=== PATIENT | male | born 1960 | race Hispanic/Latino ===

== ENCOUNTER → 2018-05-08 | Outpatient (CLI) | payer BC ==
[~2018-05-08] MED LIST: AEC81 PO; AMLO10TA6 PO; CARV25TA PO; CLOP75TA14 PO; GLYB5TAB8 PO; LISI40TA4 PO; LOVA20TA3 PO; METF-444 PO
== END | disposition home or self-care (01) ==
LOC: SHCH 09:26
PROVIDERS: ATTEND Internal Medicine Cardiovascular Disease
DX: I51.7 Cardiomegaly (principal); I25.10 Atherosclerotic heart disease of native coronary artery without angina pectoris; Z72.89 Other problems related to lifestyle
CPT/HCPCS: 93306

== ENCOUNTER 2018-06-25 08:14 | Emergency (ER) | payer BC ==
[~2018-06-25 08:14] MED LIST changes: -AMLO10TA6 PO; +AMLO10TA7 PO
[2018-06-25] MEDS ORDERED: MECLIZINE HCL 25 MG TABLET ONE (08:54)
[2018-06-25] MEDS ORDERED: ONDANSETRON HCL 4 MG/2 ML VIAL ONE (08:54)
[2018-06-25] MEDS ORDERED: SODIUM CHLORIDE 0.9% 500ML 500 ML IV ONE (08:54)
[2018-06-25 08:57] LABS: BASOPHILS % (AUTO) 0.3 % (0.0-5.0); EOSINOPHILS % (AUTO) 0.9 % (0.0-8.0); HEMATOCRIT 42.8 % (42-54); LYMPHOCYTES % (AUTO) 15.5 % (21.0-51.0); MEAN CORPUSCULAR HEMOGLOBIN 28.6 pg (27.0-33.0); MEAN CORPUSCULAR HGB CONC 33.5 g/dL (32.0-36.0); MEAN CORPUSCULAR VOLUME 85.2 fL (79-99); NEUTROPHILS % (AUTO) 78.3 % (40.0-77.0); PLATELET COUNT (AUTO) 206 K/uL (130-400); RED BLOOD CELL COUNT(AUTO) 5.02 MIL/uL (4.50-6.20); RED CELL DISTRIBUTION WIDTH 13.5 % (11.0-15.5); WHITE BLOOD COUNT (AUTO) 7.6 K/uL (4.8-10.8)
[2018-06-25 09:02] LABS: CREATININE 1.1 mg/dL (0.5-1.5); POTASSIUM 3.8 mmol/L (3.5-5.1)
== END 2018-06-25 10:29 | disposition home or self-care (01) ==
LOC: EDH 08:14
DX: H81.399 Other peripheral vertigo, unspecified ear (principal); R11.0 Nausea; E11.9 Type 2 diabetes mellitus without complications; I25.10 Atherosclerotic heart disease of native coronary artery without angina pectoris; I10 Essential (primary) hypertension; Z95.5 Presence of coronary angioplasty implant and graft; Z79.899 Other long term (current) drug therapy
CPT/HCPCS: 36415; 70450; 80048; 85025; 93005; 96361; 96374; 99285; J2405; J7040

== ENCOUNTER 2018-07-08 08:45 | Observation (INO) | payer BC ==
[2018-07-07 13:16] VITALS: BP_SYST 136; BP_SYST 90; BP_DIAS 56; BP_DIAS 74
[2018-07-07 13:26] LABS: BASOPHILS % (AUTO) 0.6 % (0.0-5.0); EOSINOPHILS % (AUTO) 3.7 % (0.0-8.0); HEMATOCRIT 41.2 % (42-54); LYMPHOCYTES % (AUTO) 26.6 % (21.0-51.0); MEAN CORPUSCULAR HEMOGLOBIN 28.9 pg (27.0-33.0); MEAN CORPUSCULAR HGB CONC 33.5 g/dL (32.0-36.0); MEAN CORPUSCULAR VOLUME 86.1 fL (79-99); MONOCYTES % (AUTO) 9.4 % (3.0-13.0); NEUTROPHILS % (AUTO) 59.7 % (40.0-77.0); PLATELET COUNT (AUTO) 229 K/uL (130-400); RED BLOOD CELL COUNT(AUTO) 4.79 MIL/uL (4.50-6.20); RED CELL DISTRIBUTION WIDTH 13.9 % (11.0-15.5); WHITE BLOOD COUNT (AUTO) 6.6 K/uL (4.8-10.8)
[2018-07-07 13:33] LABS: CREATININE 1.7 mg/dL (0.5-1.5); POTASSIUM 4.3 mmol/L (3.5-5.1)
[2018-07-07 13:40] LABS: PARTIAL THROMBOPLASTIN TIME 32.1 SEC (26.3-35.5); PROTHROMBIN TIME 10.5 SEC (9.6-11.6)
--- NOTE | 2018-07-07 15:49 | NUR ---
ABNORMAL LABS REPORTED ABNORMAL LABS TO [facility]. CREATINE 1.7. NO NEW ORDERS.
[~2018-07-08] VITALS: Ht 170.2 cm; Wt 96.8 kg
[2018-07-08] VITALS (10 sets, daily range): BP systolic 99–141; BP diastolic 60–88
[~2018-07-08 08:45] MED LIST changes: +ALLO300T2 PO; +ATOR20TA65 PO; +IBUP-2070 PO; -LOVA20TA3 PO; +SODIUM CHLORIDE 0.9% 1000ML 1,000 ML IV SCH
[2018-07-08] MEDS ORDERED: AMOX-429 PO (10:23)
[2018-07-08] MEDS ORDERED: MECL-111 PO (10:23)
--- NOTE | 2018-07-08 10:27 | NUR ---
BRANDY Crenshaw notified of patient taking antibiotics for an ear infection, pt stable no distress, afebrile. Okay to continue with procedure.
[2018-07-08] MEDS ORDERED: LIDOCAINE HCL 1% MDV 50ML VIAL ONE (13:17)
[2018-07-08] MEDS ORDERED: BUPIVACAINE/PF 0.25% 10ML VIAL IJ ONE (13:17)
[2018-07-08] MEDS ORDERED: CEFAZOLIN SODIUM 1 GM VIAL ONE (13:17)
[2018-07-08] MEDS ORDERED: MIDAZOLAM HCL 1 MG/ML 2ML VIAL ONE ×2 (14:29→15:09)
[2018-07-08] MEDS ORDERED: MEPERIDINE-PF 25 MG/ML SYG ONE ×2 (14:29→15:09)
[2018-07-08] MEDS ORDERED: OCTYL 2-CYANOACRYLATE 1 EACH TP ONE (15:27)
[2018-07-08] MEDS ORDERED: ALPRAZOLAM 0.5 MG TABLET PO SCH (16:00)
[2018-07-08] MEDS ORDERED: MECLIZINE HCL 25 MG TABLET PO PRN (16:00)
[2018-07-08] MEDS ORDERED: IBUPROFEN 600 MG TABLET PO PRN (16:00)
[2018-07-08] MEDS ORDERED: ONDANSETRON HCL 4 MG/2 ML VIAL IV PRN (16:00)
[2018-07-08] MEDS ORDERED: ACETAMINOPHEN-CODEINE 300/30MG TAB PO PRN ×2 (16:00)
[2018-07-08] MEDS ORDERED: DEXTROSE 50%-WATER 50 ML DISP.SYRIN IV PRN (16:00)
--- NOTE | 2018-07-08 16:17 | NUR ---
ASSESSMENT RECEIVED PT FROM Muna SHEFFIELD RN. PT AAOX3. RIGHT ARM IN SLING. INSTRUCTED ON IMPORTANCE OF NOT LIFTING RIGHT ARM OVER HEAD. VERBALIZED UNDERSTANDING. PRESSURE DRSG IN PLACE TO RIGHT UPPER CHEST. SOFT TO TOUCH. NO BLEEDING, OOZING NOTED.
--- NOTE | 2018-07-08 16:30 | NUR ---
SITE CHECK SITE CHECK TO RIGHT UPPER CHEST SOFT TO TOUCH. NO BLEEDING, OOZING NOTED TO SITE.
--- NOTE | 2018-07-08 16:45 | NUR ---
SITE CHECK SITE CHECK TO RIGHT UPPER CHEST SOFT TO TOUCH. NO BLEEDING, OOZING NOTED TO SITE.
--- NOTE | 2018-07-08 16:50 | NUR ---
REPORT/RECEIVE REPORT RECEIVED FROM JOE ZHOU RN. PT RECEIVED SEMI SITTING ON BED. PT AWAKE ALERT ORIENTEDX3. STABLE. NO COMPLAINTS MADE. PRESSURE DRESSING TO RIGHT CHEST INTACT, OPSITE DRESSING UNDERNEATH DRY AND INTACT, NO OOZING NOTED, SITE SOFT, NO HEMATOMA NOTED. RIGHT ARM IN SLING. ICE PACK TO SITE. PT INSTRUCTED DO NOT ELEVATE RIGHT ARM ABOVE SHOULDER LEVEL FOR 6 WEEKS. PT ALSO INSTRUCTED TO REMAIN ON BEDREST UNTIL TOMORROW MORNING. VERBALIZED UNDERSTANDING.
--- NOTE | 2018-07-08 16:50 | NUR ---
REPORT REPORT GIVEN TO Joseph LÓPEZ RN
--- NOTE | 2018-07-08 17:15 | NUR ---
HOSPITALIST DR. DELONG NOTIFIED OF ADMISSION AND ROOM #202.
--- NOTE | 2018-07-08 17:20 | NUR ---
REPORT REPORT GIVEN TO ALISHA ESTRELLA. PT EATING AT THIS TIME, ADVISED ALISHA ESTRELLA WE WILL TRANSFER PT WHEN DONE.
--- NOTE | 2018-07-08 17:25 | NUR ---
ASSESS OPSITE DRESSING TO RIGHT UPPER CHEST REMAINS DRY AND INTACT, SITE SOFT, NO OOZING NO HEMATOMA NOTED, PRESSURE DRESSING REMAINS INTACT.
--- NOTE | 2018-07-08 17:50 | NUR ---
TRANSFER PT TOLERATED DIET WELL. PT STABLE. NOT IN ANY APPARENT DISTRESS. NO COMPLAINTS MADE. SITE REMAINS SOFT, DRESSING DRY AND INTACT, NO OOZING NO HEMATOMA NOTED. PT TRANSFERRED TO ROOM 202, MAINTAINED ON BEDREST. PT RECEIVED BY SAMEER BRITO.
--- NOTE | 2018-07-08 18:00 | NUR ---
ADMISSION Received to room 202 from day patient. AAO, appropriate. Denies pain. Right chest procedural drsg dry, intact with ice pack in place. Pt reports minimal discomfort to site. Arm sling in use. SL x2 in place. Abd soft - denies nausea. Due to void - urinal within reach. Placed on telemetry monitoring. Oriented to room. Discussed plan of care. Questions addressed. Positioned for comfort. Needed items placed within reach. Family members at bedside. Assessment as recorded.
--- NOTE | 2018-07-08 20:00 | NUR ---
Patient alert and oriented. Denies pain. R arm in sling. No hematoma. Ice placed on R upper chest. Bilateral radial pulses palpable. Denies pain or sob. Educated on R arm precautions. Visitors at bedside
[2018-07-08] MEDS: AMOXICILLIN/POTASSIUM CLAV 875-125 TABLET PO SCH (20:47)
[2018-07-08] MEDS: CARVEDILOL 25 MG TABLET PO SCH (20:48)
[2018-07-08] MEDS: INSULIN HUMULIN R 100 UNIT/ML 3ML SQ SCH (21:00)
[2018-07-09] MEDS: CEFAZOLIN SODIUM 1 GM VIAL IVP SCH ×2 (00:41→08:46)
[2018-07-09 03:24] VITALS: BP 117/76
[2018-07-09 05:22] LABS: BASOPHILS % (AUTO) 0.4 % (0.0-5.0); HEMATOCRIT 38.8 % (42-54); LYMPHOCYTES % (AUTO) 23.3 % (21.0-51.0); MEAN CORPUSCULAR HEMOGLOBIN 28.6 pg (27.0-33.0); MEAN CORPUSCULAR VOLUME 86.5 fL (79-99); MONOCYTES % (AUTO) 9.4 % (3.0-13.0); NEUTROPHILS % (AUTO) 63.9 % (40.0-77.0); PLATELET COUNT (AUTO) 217 K/uL (130-400); RED BLOOD CELL COUNT(AUTO) 4.48 MIL/uL (4.50-6.20); RED CELL DISTRIBUTION WIDTH 13.6 % (11.0-15.5); WHITE BLOOD COUNT (AUTO) 5.9 K/uL (4.8-10.8)
[2018-07-09 05:31] LABS: POTASSIUM 3.9 mmol/L (3.5-5.1)
--- NOTE | 2018-07-09 06:25 | NUR ---
Taken down for Xray
[2018-07-09] MEDS: INSULIN HUMULIN R 100 UNIT/ML 3ML SQ SCH ×2 (06:47→11:30)
[2018-07-09 07:31] VITALS: BP 140/88
[2018-07-09] MEDS: AMOXICILLIN/POTASSIUM CLAV 875-125 TABLET PO SCH (08:45)
[2018-07-09] MEDS: CARVEDILOL 25 MG TABLET PO SCH (08:46)
--- NOTE | 2018-07-09 08:50 | NUR ---
DR. Violet MONTIEL IN ROOM ASSESSING RIGHT UPPER CHEST AND REMOVING PRESSURE DRSG. PT. INSTRUCTED ON RIGHT ARM RESTRICTIONS/PRECAUTIONS BY DR. Violet MONTIEL; PT. VERBALIZED UNDERSTANDING.
[2018-07-09] MEDS ORDERED: ALLOPURINOL 300 MG TABLET PO SCH (09:00)
[2018-07-09] MEDS ORDERED: LISINOPRIL 40 MG TABLET PO SCH (09:00)
[2018-07-09] MEDS ORDERED: ATORVASTATIN CALCIUM 20 MG TABLET PO SCH (09:00)
[2018-07-09] MEDS ORDERED: ASPIRIN 81 MG EC TAB PO SCH (09:00)
[2018-07-09] MEDS ORDERED: AMLODIPINE BESYLATE 5 MG TAB PO SCH (09:00)
[2018-07-09] MEDS ORDERED: METFORMIN HCL 500 MG TAB.SR.24H PO SCH (09:00)
[2018-07-09] MEDS ORDERED: CLOPIDOGREL BISULFATE 75 MG TAB PO SCH (09:00)
[2018-07-09] MEDS ORDERED: GLYBURIDE 5 MG TABLET PO SCH (09:00)
--- NOTE | 2018-07-09 10:50 | NUR ---
DR. DELONG IN ROOM SPEAKING WITH PT. RE:PLAN OF CARE.
[2018-07-09 11:32] VITALS: BP 136/79
--- NOTE | 2018-07-09 14:45 | NUR ---
HL REMOVED, CATHETER INTACT. DISCHARGE INSTRUCTIONS GIVEN INCLUDING RIGHT ARM RESTRICTIONS, VERBALIZED UNDERSTANDING.
== END 2018-07-09 15:19 | disposition home or self-care (01) ==
LOC: DAH 08:45 → DAHIP 08:46 → DAH 08:46 → 2AH 17:55
PROVIDERS: ADMIT Internal Medicine; ATTEND Internal Medicine
DX: I25.5 Ischemic cardiomyopathy (principal); E11.9 Type 2 diabetes mellitus without complications; E78.2 Mixed hyperlipidemia; G47.33 Obstructive sleep apnea (adult) (pediatric); I11.0 Hypertensive heart disease with heart failure; I50.42 Chronic combined systolic (congestive) and diastolic (congestive) heart failure; I25.10 Atherosclerotic heart disease of native coronary artery without angina pectoris; Z95.5 Presence of coronary angioplasty implant and graft; Z95.810 Presence of automatic (implantable) cardiac defibrillator; Z82.0 Family history of epilepsy and other diseases of the nervous system; Z82.3 Family history of stroke; Z82.49 Family history of ischemic heart disease and other diseases of the circulatory system; Z82.5 Family history of asthma and other chronic lower respiratory diseases; Z83.3 Family history of diabetes mellitus; E66.9 Obesity, unspecified
CPT/HCPCS: 33249; 36415 ×2; 71046; 80048 ×2; 82948 ×5; 85025 ×2; 85610; 85730; 93005; 96374; 96376; A4606; C1722; C1894; C1895; G0378 ×31; J0690 ×3; J2175 ×2; J2250 ×2; J3490 ×2; J7030; 99156; 99157

== ENCOUNTER → 2019-10-21 | Outpatient (CLI) | payer BC ==
[~2019-10-21] MED LIST changes: +AMOX-429 PO; +MECL-160 PO; -SODIUM CHLORIDE 0.9% 1000ML 1,000 ML IV SCH
== END | disposition home or self-care (01) ==
LOC: SHCH 10:00
PROVIDERS: ATTEND Internal Medicine Cardiovascular Disease
DX: R01.1 Cardiac murmur, unspecified (principal); I10 Essential (primary) hypertension; R09.89 Other specified symptoms and signs involving the circulatory and respiratory systems
CPT/HCPCS: 93306; 93356; 93880

== ENCOUNTER → 2021-11-10 | Outpatient (CLI) | payer BC ==
[~2021-11-10] MED LIST changes: +AMLO-258 PO; -AMLO10TA7 PO; -LISI40TA4 PO; +LISI40TA9 PO
== END | disposition home or self-care (01) ==
LOC: SHCH 09:21
PROVIDERS: ATTEND Internal Medicine Cardiovascular Disease
DX: I49.3 Ventricular premature depolarization (principal); I48.0 Paroxysmal atrial fibrillation; I47.2 Ventricular tachycardia; I51.7 Cardiomegaly
CPT/HCPCS: 93306

== ENCOUNTER → 2022-04-02 | Outpatient (CLI) | payer BC ==
[~2022-04-02] MED LIST changes: +REGADENOSON 0.4 MG/5 ML PF SYG IVP SCH
== END | disposition home or self-care (01) ==
LOC: SHCH 07:32
PROVIDERS: ATTEND Internal Medicine Cardiovascular Disease
DX: I49.3 Ventricular premature depolarization (principal); I51.7 Cardiomegaly; I25.5 Ischemic cardiomyopathy; R07.9 Chest pain, unspecified
CPT/HCPCS: 78452; 96374; 93017; J2785; A9500 ×2

== ENCOUNTER 2022-05-25 08:43 | Day surgery (SDC) | payer BC ==
[2022-05-23 09:00] LABS: BASOPHILS % (AUTO) 0.6 % (0.0-5.0); EOSINOPHILS % (AUTO) 7.9 % (0.0-8.0); HEMATOCRIT 42.3 % (42-54); LYMPHOCYTES % (AUTO) 28.8 % (21.0-51.0); MEAN CORPUSCULAR HEMOGLOBIN 28.9 pg (27.0-33.0); MEAN CORPUSCULAR HGB CONC 33.1 g/dL (32.0-36.0); MEAN CORPUSCULAR VOLUME 87.4 fL (79-99); MONOCYTES % (AUTO) 10.4 % (3.0-13.0); PLATELET COUNT (AUTO) 190 K/uL (130-400); RED BLOOD CELL COUNT(AUTO) 4.84 MIL/uL (4.50-6.20); RED CELL DISTRIBUTION WIDTH 13.4 % (11.0-15.5); WHITE BLOOD COUNT (AUTO) 6.9 K/uL (4.8-10.8)
[2022-05-23 09:09] LABS: CREATININE 1.4 mg/dL (0.5-1.5); POTASSIUM 4.4 mmol/L (3.5-5.1)
[2022-05-23 09:11] LABS: APPEARANCE,URINE CLEAR (CLEAR); BILIRUBIN,URINE NEGATIVE (NEGATIVE); COLOR,URINE LIGHT-YELLOW (YELLOW); GLUCOSE, URINE (UA) NEGATIVE (NEGATIVE); KETONES,URINE NEGATIVE (NEGATIVE); LEUKOCYTE ESTERASE ,URINE NEGATIVE Leu/uL (NEGATIVE); NITRATE,URINE NEGATIVE (NEGATIVE); OCCULT BLOOD,URINE NEGATIVE (NEGATIVE); PH,URINE 5.5 (5.0-8.0); PROTEIN,URINE 10 mg/dL (NEGATIVE); UROBILINOGEN,URINE 0.2 mg/dL (0.2-1.0)
[2022-05-23 09:12] LABS: INR 1.08 (0.85-1.15); PROTHROMBIN TIME 11.7 SEC (9.6-11.6)
[2022-05-23 09:13] LABS: PARTIAL THROMBOPLASTIN TIME 35.6 SEC (26.3-35.5)
[2022-05-23 09:13] LABS: MUCUS,URINE RARE LPF (None Seen); SQUAMOUS EPITHELIAL CELL,UR RARE /HPF (0-2); WBC,URINE 0-1 /HPF (0-1)
[2022-05-23 09:38] LABS: B-TYPE NATRIURETIC PEPTIDE 19 pg/mL (0-100)
[2022-05-24 09:55] VITALS: BP 115/60
[2022-05-25] VITALS (14 sets, daily range): BP systolic 79–131; BP diastolic 50–74
[~2022-05-25] VITALS: Ht 170.2 cm; Wt 95.9 kg
[~2022-05-25 08:43] MED LIST changes: +0.9% NACL 500ML IV.SOLN 500 ML IV SCH; -AEC81 PO; -AMOX-429 PO; +APIX5TAB PO; +CLOP-31 PO; -CLOP75TA14 PO; +DRON400T7 PO; -IBUP-2070 PO; -LISI40TA9 PO; -MECL-160 PO; -REGADENOSON 0.4 MG/5 ML PF SYG IVP SCH; +SACU1TAB7 PO
[2022-05-25] MEDS ORDERED: 0.9%NACL 1000ML 1,000 ML IV ONE (09:50)
[2022-05-25] MEDS ORDERED: HEPARIN 10,000 UNIT/10ML (1,000 UNIT/ML) VIAL ONE (12:01)
[2022-05-25] MEDS ORDERED: SODIUM BICARB 50MEQ 50ML VIAL 50 ML ONE (12:01)
[2022-05-25] MEDS ORDERED: MIDAZOLAM HCL 1 MG/ML 2ML VIAL ONE ×2 (12:02→12:18)
[2022-05-25] MEDS ORDERED: LIDOCAINE HCL 400MG/20ML VIAL ONE (12:02)
[2022-05-25] MEDS ORDERED: IOHEXOL 350 MG/ML 100ML INFUS..BTL IV ONE (12:02)
[2022-05-25] MEDS ORDERED: IOHEXOL-350 50ML VIAL IV ONE (12:02)
[2022-05-25] MEDS ORDERED: NITROGLYCERIN 50MG VIAL ONE (12:02)
[2022-05-25] MEDS ORDERED: MEPERIDINE-PF 25 MG/ML SYG ONE ×2 (12:02→12:18)
[2022-05-25] MEDS ORDERED: NICARDIPINE 25MG INJ IV ONE (12:03)
[2022-05-25] MEDS ORDERED: GLUCAGON 1MG KIT 1 MG ML IM PRN (13:30)
[2022-05-25] MEDS ORDERED: 0.9%NACL 1000ML 1,000 ML IV SCH (13:30)
[2022-05-25] MEDS ORDERED: DEXTROSE 50%-WATER 50 ML DISP.SYRIN IV PRN (13:30)
[2022-05-25] MEDS ORDERED: INSULIN HUMULIN R 100 UNIT/ML 3ML SQ SCH (16:30)
== END 2022-05-25 18:00 | disposition home or self-care (01) ==
LOC: DAH 08:43
PROVIDERS: ATTEND Internal Medicine Cardiovascular Disease
DX: I25.119 Atherosclerotic heart disease of native coronary artery with unspecified angina pectoris (principal); I11.0 Hypertensive heart disease with heart failure; I50.42 Chronic combined systolic (congestive) and diastolic (congestive) heart failure; I25.5 Ischemic cardiomyopathy; E78.5 Hyperlipidemia, unspecified; E11.9 Type 2 diabetes mellitus without complications; I25.2 Old myocardial infarction; E66.9 Obesity, unspecified; M10.9 Gout, unspecified; Z82.49 Family history of ischemic heart disease and other diseases of the circulatory system; Z79.84 Long term (current) use of oral hypoglycemic drugs; Z79.01 Long term (current) use of anticoagulants; Z79.899 Other long term (current) drug therapy; Z95.5 Presence of coronary angioplasty implant and graft; Z98.890 Other specified postprocedural states; Z68.33 Body mass index [BMI] 33.0-33.9, adult
CPT/HCPCS: 80048; 83880; 85025; 85610; 85730; 81001; 36415; 71045; 93005; 93458; 82948 ×2; C1894 ×3; C1760; J3490 ×4; J7030; J1644 ×2; J2250 ×2; J2175 ×2; Q9967; A4215; A4222; A4221; A4663; A4216; A4606; Q9965; A4223 ×3; 96360; 96361; 99156; 99157

== ENCOUNTER → 2022-09-25 | Outpatient (CLI) | payer BC ==
[~2022-09-25] MED LIST changes: -0.9% NACL 500ML IV.SOLN 500 ML IV SCH; +FLUT16H NASAL
== END | disposition home or self-care (01) ==
LOC: SHCH 14:10
PROVIDERS: ATTEND Internal Medicine Cardiovascular Disease
DX: I11.9 Hypertensive heart disease without heart failure (principal); I25.5 Ischemic cardiomyopathy; R06.00 Dyspnea, unspecified; E78.5 Hyperlipidemia, unspecified; E11.9 Type 2 diabetes mellitus without complications
CPT/HCPCS: 93306

== ENCOUNTER → 2023-08-06 | Outpatient (CLI) | payer BC ==
[~2023-08-06] MED LIST changes: +AMIO200T44 PO; -AMLO-258 PO; -CARV25TA PO; -DRON400T7 PO; -FLUT16H NASAL; +GLIP5TAB15 PO; -GLYB5TAB8 PO; -METF-444 PO; +METF-446 PO; +METO25 PO; +RANO500T2 PO; +SACU1TAB PO; -SACU1TAB7 PO
[2023-08-06 12:05] LABS: BASOPHILS # (AUTO) 0.04 K/uL (0.00-0.20); BASOPHILS % (AUTO) 0.6 % (0.0-5.0); EOSINOPHILS # (AUTO) 0.45 K/uL (0.00-0.70); EOSINOPHILS % (AUTO) 7.1 % (0.0-8.0); IMMATURE GRANULOCYTE ABSOLUTE 0.02 K/uL (0-1); LYMPHOCYTES # (AUTO) 1.9 K/uL (1.0-4.8); LYMPHOCYTES % (AUTO) 30.1 % (21.0-51.0); MEAN CORPUSCULAR HEMOGLOBIN 29.7 pg (27.0-33.0); MEAN CORPUSCULAR HGB CONC 33.7 g/dL (32.0-36.0); MEAN CORPUSCULAR VOLUME 88.1 fL (79-99); MONOCYTES # (AUTO) 0.6 K/uL (0.1-1.0); MONOCYTES % (AUTO) 8.7 % (3.0-13.0); NEUTROPHILS # (AUTO) 3.4 K/uL (1.8-7.7); NEUTROPHILS % (AUTO) 53.2 % (40.0-77.0); PLATELET COUNT (AUTO) 222 K/uL (130-400); RED BLOOD CELL COUNT(AUTO) 4.88 MIL/uL (4.50-6.20); RED CELL DISTRIBUTION WIDTH 13.6 % (11.0-15.5); WHITE BLOOD COUNT (AUTO) 6.3 K/uL (4.8-10.8)
[2023-08-06 12:40] LABS: ALBUMIN 3.6 g/dL (3.5-5.0); BILIRUBIN,TOTAL 0.5 mg/dL (0.2-1.0); CREATININE 1.1 mg/dL (0.5-1.5); MAGNESIUM 1.5 mg/dL (1.80-2.40); POTASSIUM 4.1 mmol/L (3.5-5.1); TOTAL PROTEIN, SERUM 7.6 g/dL (6.0-8.3)
== END | disposition home or self-care (01) ==
LOC: LAB 09:09
PROVIDERS: ATTEND Internal Medicine Cardiovascular Disease
DX: I10 Essential (primary) hypertension (principal); E78.5 Hyperlipidemia, unspecified
CPT/HCPCS: 36415; 80053; 83735; 83880; 85025

== ENCOUNTER → 2023-08-16 | Outpatient (CLI) | payer BC | END | disposition home or self-care (01) | LOC: RAH 12:51 | PROVIDERS: ATTEND Internal Medicine Cardiovascular Disease | DX: R51.9 Headache, unspecified (principal) | CPT/HCPCS: 70450 ==

== ENCOUNTER 2023-12-05 21:41 | Emergency (ER) | payer BC ==
[~2023-12-05] VITALS: Ht 170.2 cm; Wt 94.8 kg
[2023-12-05] MEDS: SOLU-MEDROL 125MG VIAL IVP ONE (22:12)
[2023-12-05] MEDS: FAMOTIDINE 20MG VIAL IV ONE (22:12)
[2023-12-05] MEDS: 0.9%NACL 1000ML 1,000 ML IV ONE (22:12)
[2023-12-05] MEDS ORDERED: PRED10TA23 PO (22:14)
[2023-12-05 22:30] VITALS: BP 114/64; PULSE 61; RESP 17; O2SAT 97
== END 2023-12-05 22:37 | disposition home or self-care (01) ==
LOC: EDH 21:41
DX: T63.441A Toxic effect of venom of bees, accidental (unintentional), initial encounter (principal); I10 Essential (primary) hypertension; E11.9 Type 2 diabetes mellitus without complications; E78.00 Pure hypercholesterolemia, unspecified; Z79.84 Long term (current) use of oral hypoglycemic drugs; Z98.890 Other specified postprocedural states; Y92.89 Other specified places as the place of occurrence of the external cause
CPT/HCPCS: 99284; 96374; 96375; J3490; J7030; J2919

== ENCOUNTER 2024-06-11 03:28 | Emergency (ER) | payer BC ==
[~2024-06-11] VITALS: Ht 170.2 cm; Wt 91.6 kg
[~2024-06-11 03:28] MED LIST changes: +PRED10TA23 PO
[2024-06-11 03:29] VITALS: TEMP 97.7
[2024-06-11 03:56] LABS: BASOPHILS # (AUTO) 0.04 K/uL (0.00-0.20); BASOPHILS % (AUTO) 0.6 % (0.0-5.0); EOSINOPHILS # (AUTO) 0.24 K/uL (0.00-0.70); EOSINOPHILS % (AUTO) 3.6 % (0.0-8.0); HEMATOCRIT 43.9 % (42-54); IMMATURE GRANULOCYTE ABSOLUTE 0.06 K/uL (0-1); LYMPHOCYTES # (AUTO) 2.2 K/uL (1.0-4.8); MEAN CORPUSCULAR HEMOGLOBIN 29.5 pg (27.0-33.0); MEAN CORPUSCULAR HGB CONC 34.4 g/dL (32.0-36.0); MEAN CORPUSCULAR VOLUME 85.9 fL (79-99); MONOCYTES # (AUTO) 0.7 K/uL (0.1-1.0); MONOCYTES % (AUTO) 10.8 % (3.0-13.0); NEUTROPHILS # (AUTO) 3.4 K/uL (1.8-7.7); NEUTROPHILS % (AUTO) 51.1 % (40.0-77.0); PLATELET COUNT (AUTO) 192 K/uL (130-400); RED BLOOD CELL COUNT(AUTO) 5.11 MIL/uL (4.50-6.20); RED CELL DISTRIBUTION WIDTH 13.7 % (11.0-15.5); WHITE BLOOD COUNT (AUTO) 6.7 K/uL (4.8-10.8)
[2024-06-11] MEDS: PROCHLORPERAZINE 10MG/2ML INJ IV ONE (03:56)
[2024-06-11] MEDS: dexaMETHasone SOD PHOSPHATE 4 MG/ML 1ML VIAL IV ONE (03:56)
[2024-06-11] MEDS: DiphenhydrAMINE HCL 50 MG/ML VIAL IV ONE (03:56)
[2024-06-11] MEDS: 0.9%NACL 1000ML 1,000 ML IV ONE (03:57)
[2024-06-11 04:04] LABS: CREATININE 1.1 mg/dL (0.5-1.3); POTASSIUM 3.8 mmol/L (3.5-5.1)
[2024-06-11 04:05] LABS: RAPID GROUP A STREP negative (NEGATIVE)
[2024-06-11 04:08] LABS: SARS-CoV-2, RNA, NAAT NEGATIVE SARS CoV-2 (NEGATIVE)
[2024-06-11 04:14] LABS: INFLUENZA TYPE A Negative For Type A (NEGATIVE)
[2024-06-11 04:16] LABS: INFLUENZA TYPE B Positive For Type B (NEGATIVE)
--- NOTE | 2024-06-11 04:16 | ERN ---
General Chief Complaint: Headache Stated Complaint: C/O HEADACHE ON AND OFF W/NAUSEA X 2 DAYS Time Seen by MD: 03:29 Source: patient History of Present Illness Initial Comments Patient is a 64-year-old male coming in to be evaluated for URI symptoms. Patient states that he has had nasal congestion postnasal drip and facial discomfort for about two weeks. Patient states that the headache has been on and off for about two days. Patient came in to be evaluated for these symptoms. Allergies: Coded Allergies: No Known Drug Allergies (Verified Allergy, Severe, 08/28/14) Home Meds Active Scripts Prednisone (Prednisone) 10 Mg Tab.ds.pk, 10 MG PO BID for 5 Days, #10 10 Prov:ERIKA ADAMS MD 12/05/23 Sacubitril/Valsartan (Entresto 24 mg-26 mg Tablet) 24 Mg-26 Mg Tablet, 1 EACH PO BID, #60 TAB Prov:DANIEL HERRERA IV, MD 07/25/23 Metoprolol Tartrate (Lopressor) 25 Mg Tab, 25 MG PO BID, #60 TAB Prov:DANIEL HERRERA IV, MD 07/25/23 Amiodarone HCl (Pacerone) 200 Mg Tablet, 400 MG PO DAILY, #60 TAB Prov:DANIEL HERRERA IV, MD 07/25/23 Reported Medications Ranolazine (RANEXA) 500 Mg Tab.er.12h, 500 MG PO BID, TAB 07/20/23 Metformin HCl (Metformin HCl) 1,000 Mg Tablet, 1000 MG PO BID, TAB 07/20/23 Glipizide (Glipizide) 5 Mg Tablet, 5 MG PO BID, TAB 07/20/23 Atorvastatin Calcium (Atorvastatin Calcium) 20 Mg Tablet, 20 MG PO HS, TAB 07/20/23 Apixaban (Eliquis) 5 Mg Tablet, 5 MG PO BID, TAB RESUME ELIQUIS ON 05/26/22 05/24/22 Allopurinol (Allopurinol) 300 Mg Tablet, 300 MG PO DAILY, TAB 07/07/18 Clopidogrel Bisulfate (Plavix) 75 Mg Tablet, 75 MG PO AM, TAB 08/28/14 Past Medical History Past Medical History: Diabetes-Type II, High Cholesterol, Hypertension Past Surgical History: None Surgical History Other: CARDIAC STENTS Social History Social History: Negative ROS Dictation CONSTITUTIONAL: No chills, no fever, no weakness, no diaphoresis, no malaise. HEAD/FACE: No signs of trauma. EENT: No eye pain, no blurred vision, no tearing, no double vision, no ear pain, no ear discharge, no nose pain, no nasal congestion, no throat pain, no throat swelling, no mouth pain. RESPIRATORY: No cough, no orthopnea, no SOB, no stridor, no wheezing. CARDIOVASCULAR: No chest pain, no edema, no palpitations, no syncope. GASTROINTESTINAL/ABDOMINAL: No abdominal pain, no constipation, no diarrhea, no nausea, no vomiting. GENITOURINARY: No abnormal discharge, no dysuria, no frequent urination, no hematuria. No complaints of pain in the genitals. MUSCULOSKELETAL: No back pain, no gout, no joint pain, no joint swelling, no muscle pain, no muscle stiffness, no neck pain. INTEGUMENTARY: No change in color, no change in hair/nails, no dryness, no lesion, no lumps, no rash. NEUROLOGICAL/PSYCH: No anxiety, not depressed, no emotional problem, no headache, no numbness, no pre-existing deficit, no history of seizures, no tremors, no weakness. HEMATOLOGIC/LYMPHATIC: Not anemic, no history of blood clots, no apparent bleeding, no bruising, glands not swollen. All Systems Negative, Except as Noted. Physical Exam Physical Exam Dictation VITAL SIGNS: Reviewed. GENERAL APPEARANCE: Alert, oriented x3, no acute distress, obese. HEAD AND FACE: Non-traumatic. EYES: PERRL, pink conjunctivas, eyelid no trauma, anterior chamber clear. EARS: Pinnas intact and no signs of trauma or erythema. Ear canals clear and no discharge. TMs no erythema. NOSE: No discharge, no bleeding. OROPHARYNX: Mouth normal, teeth no caries, tongue pink. Pharynx clear, no erythema. Tonsils no exudates, no abscesses noted. Mucous membrane moist. NECK: Supple, non-tender, no thyromegaly, no masses, no JVD, no bruits. BREAST: Deferred. CHEST: No tenderness, no crepitus, no paradoxical movement, no retractions. LUNGS: Clear, well-ventilated, symmetric, no rales, no wheezing, no rhonchi, no stridor, good breath sounds bilaterally. HEART: Regular rate, regular rhythm, no murmur, no gallops. VASCULAR: No peripheral edema. ABDOMEN: Soft, positive bowel sounds, nondistended, no guarding, nontender, no rebound, no masses no hepatomegaly, no splenomegaly, no Hoffmann's sign, no hernias. RECTAL: Deferred. GENITAL: Deferred. NEUROLOGICAL: Normal speech, gross motor function intact, gross sensory function intact. MUSCULOSKELETAL: Neck nontender, full range of motion, back nontender, full range of motion. EXTREMITIES: Nontender, full range of motion. SKIN: Color pink, dry, no turgor, no rash, no lacerations, no abrasions, no contusions. LYMPHATICS: Deferred. Results Laboratory and Microbiology Lab and Micro Result Laboratory Tests Test 06/11/24 03:44 White Blood Count 6.7 K/uL (4.8-10.8) Red Blood Count 5.11 MIL/uL (4.50-6.20) Hemoglobin 15.1 g/dL (14.0-18.0) Hematocrit 43.9 % (42-54) Mean Corpuscular Volume 85.9 fL (79-99) Mean Corpuscular Hemoglobin 29.5 pg (27.0-33.0) Mean Corpuscular Hemoglobin Concent 34.4 g/dL (32.0-36.0) Red Cell Distribution Width 13.7 % (11.0-15.5) Platelet Count 192 K/uL (130-400) Mean Platelet Volume 11.6 fL (7.5-10.5) H Immature Granulocyte % (Auto) 0.9 % (0-1) Neutrophils (%) (Auto) 51.1 % (40.0-77.0) Lymphocytes (%) (Auto) 33.0 % (21.0-51.0) Monocytes (%) (Auto) 10.8 % (3.0-13.0) Eosinophils (%) (Auto) 3.6 % (0.0-8.0) Basophils (%) (Auto) 0.6 % (0.0-5.0) Neutrophils # (Auto) 3.4 K/uL (1.8-7.7) Lymphocytes # (Auto) 2.2 K/uL (1.0-4.8) Monocytes # (Auto) 0.7 K/uL (0.1-1.0) Eosinophils # (Auto) 0.24 K/uL (0.00-0.70) Basophils # (Auto) 0.04 K/uL (0.00-0.20) Absolute Immature Granulocyte (auto 0.06 K/uL (0-1) Nucleated Red Blood Cells 0.0 % (0.0-0.19) Sodium Level 141 mmol/L (136-145) Potassium Level 3.8 mmol/L (3.5-5.1) Chloride Level 103 mmol/L (101-111) Carbon Dioxide Level 30 mmol/L (21-32) Blood Urea Nitrogen 14 mg/dL (7-18) Creatinine 1.1 mg/dL (0.5-1.3) Glomerular Filtration Rate Calc 75 mL/min (>90) Random Glucose 120 mg/dL (70-105) H Total Calcium 8.6 mg/dL (8.5-10.1) Influenza Type A Antigen Negative For Type A Influenza Type B Antigen Positive For Type B SARS-CoV-2, RNA, NAAT NEGATIVE SARS CoV-2 Group A Streptococcus Rapid negative (NEGATIVE) Labs Reviewed?: Yes MDM MDM: Differential diagnosis: Influenza, dehydration, sinusitis, 64-year-old male coming in to be evaluated for multiple complaints. Some of the complaints include URI symptoms cough runny nose nasal congestion body aches and headaches. Laboratory workup positive for influenza B. Patient received a headache cocktail states he feels much better will be discharged with Tamiflu. ED Course Orders Procedure Category Date Status Time Cbc With Differential LAB 06/11/24 Complete 03:32 Basic Metabolic Panel LAB 06/11/24 Complete 03:32 Covid Rna Naat LAB 06/11/24 Complete 03:32 Influenza Type A & B, LAB 06/11/24 Complete Rapid 03:32 Rapid (Group A Strep) LAB 06/11/24 Complete 03:32 0.9%Nacl 1000ml (Ns PHA 06/11/24 Complete 1000ml) 04:00 Prochlorperazine PHA 06/11/24 Complete 10mg/2ml Inj 04:00 Diphenhydramine Hcl PHA 06/11/24 Complete (Benadryl Inj) 04:00 Dexamethasone 4mg/Ml PHA 06/11/24 Complete 1ml Vial (Dexametha 04:00 Current Medications Medications (Trade) Dose Ordered Sig/Jeninfer Route PRN Reason Start Time Stop Time Status Last Admin Dose Admin Dexamethasone Sodium Phosphate (dexaMETHasone 4MG/ML 1ML VIAL) 4 mg ONCE ONCE IV 06/11/24 04:00 06/11/24 04:01 DC 06/11/24 03:56 Diphenhydramine HCl (BENAdryl INJ) 25 mg ONCE ONCE IV 06/11/24 04:00 06/11/24 04:01 DC 06/11/24 03:56 Prochlorperazine Edisylate (Compazine 10mg/ 2ml Inj) 10 mg ONCE ONCE IV 06/11/24 04:00 06/11/24 04:01 DC 06/11/24 03:56 Sodium Chloride 1,000 ml @ 0 mls/hr ONCE ONCE IV 06/11/24 04:00 06/11/24 04:01 DC 06/11/24 03:57 Vital Signs Date Time Temp Pulse Resp B/P (MAP) Pulse Ox O2 Delivery O2 Flow Rate FiO2 06/11/24 03:51 85 18 99/46 98 Room Air* 0 21 06/11/24 03:29 97.7 64 20 158/89 96 Room Air DX & DISP Disposition: Discharge Departure Impression: Primary Impression: Influenza B Condition: Stable Scripts Fluticasone Propionate (Flonase Nasal [place]) 50 Mcg/Actuation [place] 2 SPRAY NS DAILY, #16 GM 0 Refills Prov: ERIKA ADAMS MD 06/11/24 Pseudoephedrine HCl (Sudafed 12 Hour) 120 Mg Tablet.er 1 TAB PO BID for 5 Days, #10 TAB 0 Refills Prov: ERIKA ADAMS MD 06/11/24 Oseltamivir Phosphate (Tamiflu) 75 Mg Cap 1 CAP PO BID for 5 Days, #10 CAP 0 Refills Prov: ERIKA ADAMS MD 06/11/24 Additional Instructions: FOLLOW-UP WITH PRIMARY CARE PROVIDER IN 1 TO 2 DAYS. TAKE MEDICATIONS DIRECTED HERE IN THE EMERGENCY ROOM. OKAY TO CONTINUE HOME MEDICATIONS UNLESS OTHERWISE DISCUSSED DURING YOUR VISIT IN THE EMERGENCY ROOM TODAY. RETURN TO YOUR NEAREST EMERGENCY ROOM IF SYMPTOMS WORSEN OR IF THERE IS NO IMPROVEMENT. CALL 911 IF YOU NEED IMMEDIATE ASSISTANCE. TAKE TYLENOL [id number] NEEDED AND IF NO CONTRAINDICATIONS ARE PRESENT. INCREASE ORAL HYDRATION. A WOUND CULTURE OR URINE CULTURE WAS ORDERED HERE IN THE EMERGENCY ROOM DEPARTMENT PLEASE FOLLOW-UP WITH PRIMARY CARE PROVIDER AND ADVISE THEM TO GET REPEAT PORTS FROM OUR FACILITY. IF YOU HAD ANY LORA WRAP/SPLINTS THAT WERE APPLIED HERE, PLEASE DO NOT REMOVE THEM UNTIL YOU SEE YOUR PRIMARY CARE OR SPECIALTY. Referrals: Referrals: BEATRICE PERERA (PCP) Time of Disposition: 04:20 ERIKA ADAMS MD Jun 11, 2024 04:16
[2024-06-11] MEDS ORDERED: PSEU120T62 PO (04:21)
[2024-06-11] MEDS ORDERED: OSEL75 PO (04:21)
[2024-06-11] MEDS ORDERED: FLUT16H NS (04:21)
[2024-06-11 04:33] VITALS: BP 134/76; PULSE 60; RESP 18; O2SAT 95
== END 2024-06-11 04:40 | disposition home or self-care (01) ==
LOC: EDH 03:28
DX: J10.1 Influenza due to other identified influenza virus with other respiratory manifestations (principal); E11.9 Type 2 diabetes mellitus without complications; E78.00 Pure hypercholesterolemia, unspecified; I10 Essential (primary) hypertension; Z20.822 Contact with and (suspected) exposure to COVID-19; Z79.01 Long term (current) use of anticoagulants; Z79.52 Long term (current) use of systemic steroids; Z79.84 Long term (current) use of oral hypoglycemic drugs; Z79.899 Other long term (current) drug therapy; Z95.5 Presence of coronary angioplasty implant and graft
CPT/HCPCS: 99284; 96374; 96375; 87635; 96361; 80048; 85025; 87880; 87804 ×2; 36415; J1100; J1200; J7030; J0780

== ENCOUNTER 2024-07-08 05:21 | Emergency (ER) | payer BC ==
[~2024-07-08] VITALS: Ht 170.2 cm; Wt 92.1 kg
[~2024-07-08 05:21] MED LIST changes: +FLUT16H NS; +OSEL75 PO; +PSEU120T62 PO
[2024-07-08 06:00] LABS: HEMATOCRIT 44.8 % (42-54); LYMPHOCYTES % (AUTO) 29.3 % (21.0-51.0); MEAN CORPUSCULAR HEMOGLOBIN 29.1 pg (27.0-33.0); MEAN CORPUSCULAR HGB CONC 33.9 g/dL (32.0-36.0); MEAN CORPUSCULAR VOLUME 85.8 fL (79-99); NEUTROPHILS % (AUTO) 55.3 % (40.0-77.0); PLATELET COUNT (AUTO) 199 K/uL (130-400); RED BLOOD CELL COUNT(AUTO) 5.22 MIL/uL (4.50-6.20); RED CELL DISTRIBUTION WIDTH 13.6 % (11.0-15.5); WHITE BLOOD COUNT (AUTO) 6.5 K/uL (4.8-10.8)
[2024-07-08 06:01] LABS: BASOPHILS # (AUTO) 0.03 K/uL (0.00-0.20); BASOPHILS % (AUTO) 0.5 % (0.0-5.0); EOSINOPHILS # (AUTO) 0.15 K/uL (0.00-0.70); EOSINOPHILS % (AUTO) 2.3 % (0.0-8.0); IMMATURE GRANULOCYTE ABSOLUTE 0.04 K/uL (0-1); LYMPHOCYTES # (AUTO) 1.9 K/uL (1.0-4.8); MONOCYTES # (AUTO) 0.8 K/uL (0.1-1.0); NEUTROPHILS # (AUTO) 3.6 K/uL (1.8-7.7)
[2024-07-08 06:14] LABS: CREATININE 1.2 mg/dL (0.5-1.3); MAGNESIUM 1.5 mg/dL (1.80-2.40); POTASSIUM 3.7 mmol/L (3.5-5.1)
[2024-07-08 06:20] LABS: INFLUENZA TYPE A Negative For Type A (NEGATIVE); INFLUENZA TYPE B Negative For Type B (NEGATIVE)
[2024-07-08 06:25] LABS: INR 1.02 (0.85-1.15); PROTHROMBIN TIME 11.4 SEC (9.6-11.6)
[2024-07-08 06:27] LABS: PARTIAL THROMBOPLASTIN TIME 32.5 SEC (26.3-35.5)
[2024-07-08 06:31] LABS: APPEARANCE,URINE CLEAR (CLEAR); BILIRUBIN,URINE NEGATIVE (NEGATIVE); COLOR,URINE COLORLESS (YELLOW); GLUCOSE, URINE (UA) NEGATIVE (NEGATIVE); KETONES,URINE NEGATIVE (NEGATIVE); LEUKOCYTE ESTERASE ,URINE NEGATIVE Leu/uL (NEGATIVE); NITRATE,URINE NEGATIVE (NEGATIVE); OCCULT BLOOD,URINE NEGATIVE (NEGATIVE); PROTEIN,URINE 50 mg/dL (NEGATIVE); UROBILINOGEN,URINE 0.2 mg/dL (0.2-1.0)
[2024-07-08 06:32] LABS: SARS-CoV-2, RNA, NAAT NEGATIVE SARS CoV-2 (NEGATIVE)
--- NOTE | 2024-07-08 06:32 | ERN ---
General Chief Complaint: Hypertension Stated Complaint: C/O HIGH B/P WITH HEADACHE X 2 DAYS Time Seen by MD: 05:23 Source: patient History of Present Illness Initial Comments Patient is a 64-year-old male coming in to be evaluated for elevated blood pr essure and chest pressure. Patient states that the symptoms began a couple of days ago he went to his PCP in due to elevated blood pressure but states that he was unable to be seen. Patient was concerned because he does have a history of stent placement in 2006. 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 Allergies: Coded Allergies: No Known Drug Allergies (Verified Allergy, Severe, 08/28/14) Home Meds Active Scripts Fluticasone Propionate (Flonase Nasal [place]) 50 Mcg/Actuation [place], 2 SPRAY NS DAILY, #16 GM 0 Refills Prov:ERIKA ADAMS MD 06/11/24 Pseudoephedrine HCl (Sudafed 12 Hour) 120 Mg Tablet.er, 1 TAB PO BID for 5 Days, #10 TAB 0 Refills Prov:ERIKA ADAMS MD 06/11/24 Oseltamivir Phosphate (Tamiflu) 75 Mg Cap, 1 CAP PO BID for 5 Days, #10 CAP 0 Refills Prov:ERIKA ADAMS MD 06/11/24 Prednisone (Prednisone) 10 Mg Tab.ds.pk, 10 MG PO BID for 5 Days, #10 10 Prov:ERIKA ADAMS MD 12/05/23 Sacubitril/Valsartan (Entresto 24 mg-26 mg Tablet) 24 Mg-26 Mg Tablet, 1 EACH PO BID, #60 TAB Prov:DANIEL HERRERA IV, MD 07/25/23 Metoprolol Tartrate (Lopressor) 25 Mg Tab, 25 MG PO BID, #60 TAB Prov:DANIEL HERRERA IV, MD 07/25/23 Amiodarone HCl (Pacerone) 200 Mg Tablet, 400 MG PO DAILY, #60 TAB Prov:DANIEL HERRERA IV, MD 07/25/23 Reported Medications Ranolazine (RANEXA) 500 Mg Tab.er.12h, 500 MG PO BID, TAB 07/20/23 Metformin HCl (Metformin HCl) 1,000 Mg Tablet, 1000 MG PO BID, TAB 07/20/23 Glipizide (Glipizide) 5 Mg Tablet, 5 MG PO BID, TAB 07/20/23 Atorvastatin Calcium (Atorvastatin Calcium) 20 Mg Tablet, 20 MG PO HS, TAB 07/20/23 Apixaban (Eliquis) 5 Mg Tablet, 5 MG PO BID, TAB RESUME ELIQUIS ON 05/26/22 05/24/22 Allopurinol (Allopurinol) 300 Mg Tablet, 300 MG PO DAILY, TAB 07/07/18 Clopidogrel Bisulfate (Plavix) 75 Mg Tablet, 75 MG PO AM, TAB 08/28/14 Past Medical History Past Medical History: Diabetes-Type II, Heart Disease, Hypertension Medical History Other: HX OF GOUT Past Surgical History: Pacer/AICD Surgical History Other: CARDIAC STENTS Social History Social History: Negative ROS Dictation CONSTITUTIONAL: No chills, no fever, no weakness, no diaphoresis, no malaise. HEAD/FACE: No signs of trauma. EENT: No eye pain, no blurred vision, no tearing, no double vision, no ear pain, no ear discharge, no nose pain, no nasal congestion, no throat pain, no throat swelling, no mouth pain. RESPIRATORY: No cough, no orthopnea, no SOB, no stridor, no wheezing. CARDIOVASCULAR: chest pain, no edema, no palpitations, no syncope. GASTROINTESTINAL/ABDOMINAL: No abdominal pain, no constipation, no diarrhea, no nausea, no vomiting. GENITOURINARY: No abnormal discharge, no dysuria, no frequent urination, no hematuria. No complaints of pain in the genitals. MUSCULOSKELETAL: No back pain, no gout, no joint pain, no joint swelling, no muscle pain, no muscle stiffness, no neck pain. INTEGUMENTARY: No change in color, no change in hair/nails, no dryness, no lesion, no lumps, no rash. NEUROLOGICAL/PSYCH: No anxiety, not depressed, no emotional problem, no headache, no numbness, no pre-existing deficit, no history of seizures, no tremors, no weakness. HEMATOLOGIC/LYMPHATIC: Not anemic, no history of blood clots, no apparent bleeding, no bruising, glands not swollen. All Systems Negative, Except as Noted. Physical Exam Physical Exam Dictation VITAL SIGNS: Reviewed. GENERAL APPEARANCE: Alert, oriented x3, no acute distress, obese. HEAD AND FACE: Non-traumatic. EYES: PERRL, pink conjunctivas, eyelid no trauma, anterior chamber clear. EARS: Pinnas intact and no signs of trauma or erythema. Ear canals clear and no discharge. TMs no erythema. NOSE: No discharge, no bleeding. OROPHARYNX: Mouth normal, teeth no caries, tongue pink. Pharynx clear, no erythema. Tonsils no exudates, no abscesses noted. Mucous membrane moist. NECK: Supple, non-tender, no thyromegaly, no masses, no JVD, no bruits. BREAST: Deferred. CHEST: No tenderness, no crepitus, no paradoxical movement, no retractions. LUNGS: Clear, well-ventilated, symmetric, no rales, no wheezing, no rhonchi, no stridor, good breath sounds bilaterally. HEART: Regular rate, regular rhythm, no murmur, no gallops. VASCULAR: No peripheral edema. ABDOMEN: Soft, positive bowel sounds, nondistended, no guarding, nontender, no rebound, no masses no hepatomegaly, no splenomegaly, no Hoffmann's sign, no hernias. RECTAL: Deferred. GENITAL: Deferred. NEUROLOGICAL: Normal speech, gross motor function intact, gross sensory function intact. MUSCULOSKELETAL: Neck nontender, full range of motion, back nontender, full range of motion. EXTREMITIES: Nontender, full range of motion. SKIN: Color pink, dry, no turgor, no rash, no lacerations, no abrasions, no contusions. LYMPHATICS: Deferred. Results Laboratory and Microbiology Lab and Micro Result Laboratory Tests Test 07/08/24 05:45 07/08/24 05:52 White Blood Count 6.5 K/uL (4.8-10.8) Red Blood Count 5.22 MIL/uL (4.50-6.20) Hemoglobin 15.2 g/dL (14.0-18.0) Hematocrit 44.8 % (42-54) Mean Corpuscular Volume 85.8 fL (79-99) Mean Corpuscular Hemoglobin 29.1 pg (27.0-33.0) Mean Corpuscular Hemoglobin Concent 33.9 g/dL (32.0-36.0) Red Cell Distribution Width 13.6 % (11.0-15.5) Platelet Count 199 K/uL (130-400) Mean Platelet Volume 11.6 fL (7.5-10.5) H Immature Granulocyte % (Auto) 0.6 % (0-1) Neutrophils (%) (Auto) 55.3 % (40.0-77.0) Lymphocytes (%) (Auto) 29.3 % (21.0-51.0) Monocytes (%) (Auto) 12.0 % (3.0-13.0) Eosinophils (%) (Auto) 2.3 % (0.0-8.0) Basophils (%) (Auto) 0.5 % (0.0-5.0) Neutrophils # (Auto) 3.6 K/uL (1.8-7.7) Lymphocytes # (Auto) 1.9 K/uL (1.0-4.8) Monocytes # (Auto) 0.8 K/uL (0.1-1.0) Eosinophils # (Auto) 0.15 K/uL (0.00-0.70) Basophils # (Auto) 0.03 K/uL (0.00-0.20) Absolute Immature Granulocyte (auto 0.04 K/uL (0-1) Nucleated Red Blood Cells 0.0 % (0.0-0.19) Prothrombin Time 11.4 SEC (9.6-11.6) Prothromb Time International Ratio 1.02 (0.85-1.15) Activated Partial Thromboplast Time 32.5 SEC (26.3-35.5) Sodium Level 140 mmol/L (136-145) Potassium Level 3.7 mmol/L (3.5-5.1) Chloride Level 101 mmol/L (101-111) Carbon Dioxide Level 29 mmol/L (21-32) Blood Urea Nitrogen 18 mg/dL (7-18) Creatinine 1.2 mg/dL (0.5-1.3) Glomerular Filtration Rate Calc 68 mL/min (>90) Random Glucose 97 mg/dL (70-105) Total Calcium 9.1 mg/dL (8.5-10.1) Magnesium Level 1.50 mg/dL (1.80-2.40) L Total Creatine Kinase 63 U/L (21-232) # Troponin I High Sensitivity 17 ng/L (4-75) B-Type Natriuretic Peptide 50 pg/mL (0-100) Urine Color COLORLESS (YELLOW) Urine Appearance CLEAR (CLEAR) Urine pH 7.0 (5.0-8.0) Urine Specific [place] 1.010 (1.001-1.031) Urine Protein 50 mg/dL (NEGATIVE) H Urine Glucose (UA) NEGATIVE mg/dL (NEGATIVE) Urine Ketones NEGATIVE mg/dL (NEGATIVE) Urine Occult Blood NEGATIVE (NEGATIVE) Urine Nitrate NEGATIVE (NEGATIVE) Urine Bilirubin NEGATIVE mg/dL (NEGATIVE) Urine Urobilinogen 0.2 mg/dL (0.2-1.0) Urine Leukocyte Esterase NEGATIVE [place]/uL Urine RBC None /HPF (0-1) Urine WBC 0-1 /HPF (0-1) Urine Bacteria None /HPF (None Seen) Influenza Type A Antigen Negative For Type A Influenza Type B Antigen Negative For Type B SARS-CoV-2, RNA, NAAT NEGATIVE SARS CoV-2 Labs Reviewed?: Yes EKG/XRAY/US/CT/MRI EKG Comment 07/08/2024 time 5:35 a.m. Ventricular rate 66 Sinus rhythm DC [address] wave elevation or depression MDM CC: HTN & CP Historian: patient Comorbidities: CAD w stent placement, HTN, DM Limitations by social determinates of health: none Ddx: ACS, hypertensive urgency, TAD, PNA, PTX, etc. Initial BP 204/78, repeat improved to 179/96. Otherwise VSS Labs (independently ordered & interpreted by me): CBC normal, coags stable, BMP normal, CK, troponin, BNP normal. CXR (independently interpreted by me): no cardiomegally, pleural effusion, PTX. Stable. ACD in place. EKG (independently interpreted by me): SR rate 66, normal axis, good RWP, intervals stable. Old ischemic changes leads III, aVF, no acute abnormalities. Treatment in ED: clonidine PO. HEART score 4, normal troponin. I considered admission for chest pain workup and hypertensive urgency. RE-evaluation: patient's BP has improved after Clonidine. Troponin is normal, EKGs stable. Chest x-ray is stable. 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 He will follow up as an outpatient. I will give him a prescription for clonidine to use as needed. ED Course Orders Procedure Category Date Status Time Cbc With Differential LAB 07/08/24 Complete 05:29 Prothrombin Time With LAB 07/08/24 Complete INR 05:29 B-Type Natriuretic LAB 07/08/24 Complete Peptide 05:29 Chest 1vw RAD 07/08/24 Taken 05:29 12 Lead Ekg Tracing- EKG 07/08/24 Complete Technical 05:29 Magnesium LAB 07/08/24 Complete 05:29 Creatine Kinase, Total LAB 07/08/24 Complete 05:29 Troponin I High LAB 07/08/24 Complete Sensitivity 05:29 Urinalysis Profile LAB 07/08/24 Complete 05:29 Partial LAB 07/08/24 Complete Thromboplastin Time 05:29 Basic Metabolic Panel LAB 07/08/24 Complete 05:29 Influenza Type A & B, LAB 07/08/24 Complete Rapid 05:29 Covid Rna Naat LAB 07/08/24 Complete 05:29 Troponin I High LAB 07/08/24 In Process Sensitivity 06:37 Clonidine Hcl 0.1 Mg PHA 07/08/24 Complete Tablet (Catapres 0. 06:37 Aspirin 325mg Tab PHA 07/08/24 Complete (Aspirin 325mg Tab) 07:30 Labetalol 20mg Syg PHA 07/08/24 Complete (Trandate 20mg Syg) 07:30 Current Medications Medications (Trade) Dose Ordered Sig/Jennifer Route PRN Reason Start Time Stop Time Status Last Admin Dose Admin Aspirin (Aspirin 325mg Tab) 325 mg ONCE ONCE PO 07/08/24 07:30 07/08/24 07:21 DC Clonidine HCl (CATApres 0.1 mg TAB) 0.1 mg BID STAT PO 07/08/24 06:37 07/08/24 06:39 DC 07/08/24 06:43 Labetalol HCl (TRANdate 20MG SYG) 10 mg ONCE ONCE IV 07/08/24 07:30 07/08/24 07:21 DC Vital Signs Date Time Temp Pulse Resp B/P (MAP) Pulse Ox O2 Delivery O2 Flow Rate FiO2 07/08/24 07:09 57 14 148/80 95 Room Air* 0 07/08/24 06:43 59 204/78 07/08/24 06:36 58 16 204/77 58 Room Air* 0 07/08/24 05:50 97.3 65 18 179/96 96 Room Air* 0 21 1/29/25 05:23 97.0 70 20 194/110 97 Room Air DX & DISP Disposition: Discharge Departure Impression: Primary Impression: Hypertensive urgency Condition: Stable Scripts Clonidine HCl (Clonidine HCl) 0.1 Mg Tablet 1 TAB PO HS for 30 Days, #30 TAB 0 Refills Prov: PATRICK GALE DO 07/08/24 Additional Instructions: You had elevated blood pressure readings here in the ER. Your blood pressure improved with treatment. Your EKG is stable. Your chest x-ray is stable. Your lab work (CBC, BMP, troponin, CK, BNP) is stable. Continue taking your normal home blood pressure medications. I have prescribed clonidine. Use this medication as needed for elevated blood pressure readings with symptoms. If your blood pressure reading is greater than 170/100 and you are having symptoms, take a clonidine. As we discussed, please follow up with Dr. Lawson today. Return to the emergency department as needed. Referrals: BEATRICE PERERA (PCP) ERIKA ADAMS MD Jul 08, 2024 06:32 PATRICK GALE DO Jul 08, 2024 07:25
[2024-07-08] MEDS: cloNIDine HCL 0.1 MG TABLET PO STA (06:43)
[2024-07-08 06:51] LABS: B-TYPE NATRIURETIC PEPTIDE 50 pg/mL (0-100)
[2024-07-08 06:53] LABS: ADD UA MICROSCOPIC YES
[2024-07-08 06:54] LABS: MUCUS,URINE RARE LPF (None Seen); WBC,URINE 0-1 /HPF (0-1)
--- NOTE | 2024-07-08 07:09 | EKG ---
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1960 Requested By: ERIKA ADAMS Order Number: [id number] Reading MD: Dilip Flores Measurements Intervals [place] Rate: 66 P: 23 NM: 191 QRS: 8 QRSD: 126 T: -32 QT: 451 QTc: 472 Interpretive Statements Sinus rhythm Probable left ventricular hypertrophy Inferior infarct, age indeterminate Compared to ECG 07/21/2023 09:12:15 Ventricular premature complex(es) no longer present Intraventricular conduction delay no longer present T-wave abnormality no longer present Myocardial infarct finding still present Electronically Signed On 07-08-2024 20:02:23 ALIGNMENT MECHANIC by Dilip Flores Please click the below link to view image of tracing.
[2024-07-08] MEDS ORDERED: CLON0.1T PO (07:24)
[2024-07-08] MEDS: ASPIRIN 325MG TAB PO ONE (07:25)
[2024-07-08] MEDS: LAbetaLOL 20MG SYG IV ONE (07:26)
[2024-07-08 07:42] VITALS: BP 138/77; PULSE 59; RESP 14; TEMP 97.3; O2SAT 95
--- NOTE | 2024-07-08 08:52 | HMCIMG ---
CHEST 1VW REASON: cp COMPARISON: 07/19/2023 FINDINGS: Single view of the chest was obtained. Lungs are clear. Heart size is normal. There is no pulmonary vascular congestion. Mediastinum and bony thorax appear unremarkable. There is a right-sided pacemaker in place. IMPRESSION: 1. No acute finding, no change.
== END 2024-07-08 07:57 | disposition home or self-care (01) ==
LOC: EDH 05:21
DX: I16.0 Hypertensive urgency (principal); E11.9 Type 2 diabetes mellitus without complications; I11.9 Hypertensive heart disease without heart failure; I25.10 Atherosclerotic heart disease of native coronary artery without angina pectoris; Z79.01 Long term (current) use of anticoagulants; Z79.52 Long term (current) use of systemic steroids; Z79.84 Long term (current) use of oral hypoglycemic drugs; Z79.899 Other long term (current) drug therapy; Z95.5 Presence of coronary angioplasty implant and graft; Z95.810 Presence of automatic (implantable) cardiac defibrillator; Z20.822 Contact with and (suspected) exposure to COVID-19
CPT/HCPCS: 36415; 71045; 80048; 81001; 82550; 83735; 83880; 84484; 85025; 85610; 85730; 87635; 87804; 93005; 96374; 99284

== ENCOUNTER 2024-10-17 11:50 | Emergency (ER) | payer BC ==
[~2024-10-17] VITALS: Ht 170.2 cm; Wt 92.6 kg
[~2024-10-17 11:50] MED LIST changes: +CLON0.1T PO
--- NOTE | 2024-10-17 11:51 | NUR ---
PATIENT BEDDED TO ROOM 7 AT THIS TIME
[2024-10-17] MEDS: Solu-medROL 125MG VIAL IVP ONE (12:25)
[2024-10-17] MEDS: 0.9%NACL 1000ML 660 ML IV ONE (12:26)
[2024-10-17] MEDS: FAMOTIDINE 20MG VIAL IV ONE (12:26)
--- NOTE | 2024-10-17 12:45 | NUR ---
REPORT ENDORSED TO ZAHRA ESTRELLA AND MOVED FROM ED BED 7 TO ED BED 18
--- NOTE | 2024-10-17 13:23 | NUR ---
patient temp 96.2 tympanic, patient skin is warm to the touch, paitent c/o mild headache 3/10, does not complain of being cold, warm blankets were placed on paitent. ERMD made aware
[2024-10-17 13:50] LABS: HEMATOCRIT 44.1 % (42-54); MEAN CORPUSCULAR HEMOGLOBIN 28.8 pg (27.0-33.0); MEAN CORPUSCULAR HGB CONC 32.7 g/dL (32.0-36.0); MEAN CORPUSCULAR VOLUME 88.2 fL (79-99); PLATELET COUNT (AUTO) 169 K/uL (130-400); WHITE BLOOD COUNT (AUTO) 10.3 K/uL (4.8-10.8)
[2024-10-17 14:01] LABS: CREATININE 1.7 mg/dL (0.5-1.3); POTASSIUM 4.4 mmol/L (3.5-5.1)
[2024-10-17 14:07] LABS: ALBUMIN 2.9 g/dL (3.5-5.0); BILIRUBIN,TOTAL 0.4 mg/dL (0.2-1.0); TOTAL PROTEIN, SERUM 5.9 g/dL (6.0-8.3)
--- NOTE | 2024-10-17 14:23 | ERN ---
General Chief Complaint: Allergic Reaction Stated Complaint: ALLERGIC REACTION Time Seen by MD: 11:53 History of Present Illness Initial Comments Mr Newman is a 64-year-old male who presents to the emergency department after sustaining approximately 4-5 bee stings to the scalp and posterior neck while coming in the neighbor's yd. He describes immediate burning and tingling sensation fallen at by a sensation of generalized weakness and subsequently passed out at the [employer] while attempting the purchase [employer]. Tobin burton denies any history of anaphylaxis or significant past allergic reactions to insect stings. He was hypotensive in the emergency department with a upon arrival. Patient apparently has increased swelling around his eyes patient has puffiness. Patient denies shortness of breath or chest pain he denies throat tightness. Allergies: Coded Allergies: No Known Drug Allergies (Verified Allergy, Severe, 08/28/14) bee venom protein (honey bee) (Unverified Allergy, Severe, 10/17/24) Home Meds Active Scripts Clonidine HCl (Clonidine HCl) 0.1 Mg Tablet, 1 TAB PO HS for 30 Days, #30 TAB 0 Refills Prov:PATRICK GALE DO 07/08/24 Fluticasone Propionate (Flonase Nasal [place]) 50 Mcg/Actuation [place], 2 SPRAY NS DAILY, #16 GM 0 Refills Prov:ERIKA ADAMS MD 06/11/24 Pseudoephedrine HCl (Sudafed 12 Hour) 120 Mg Tablet.er, 1 TAB PO BID for 5 Days, #10 TAB 0 Refills Prov:ERIKA ADAMS MD 06/11/24 Oseltamivir Phosphate (Tamiflu) 75 Mg Cap, 1 CAP PO BID for 5 Days, #10 CAP 0 Refills Prov:ERIKA ADAMS MD 06/11/24 Prednisone (Prednisone) 10 Mg Tab.ds.pk, 10 MG PO BID for 5 Days, #10 10 Prov:ERIKA ADAMS MD 12/05/23 Sacubitril/Valsartan (Entresto 24 mg-26 mg Tablet) 24 Mg-26 Mg Tablet, 1 EACH PO BID, #60 TAB Prov:DANIEL HERRERA IV, MD 07/25/23 Metoprolol Tartrate (Lopressor) 25 Mg Tab, 25 MG PO BID, #60 TAB Prov:DANIEL HERRERA IV, MD 07/25/23 Amiodarone HCl (Pacerone) 200 Mg Tablet, 400 MG PO DAILY, #60 TAB Prov:DANIEL HERRERA IV, MD 07/25/23 Reported Medications Ranolazine (RANEXA) 500 Mg Tab.er.12h, 500 MG PO BID, TAB 07/20/23 Metformin HCl (Metformin HCl) 1,000 Mg Tablet, 1000 MG PO BID, TAB 07/20/23 Glipizide (Glipizide) 5 Mg Tablet, 5 MG PO BID, TAB 07/20/23 Atorvastatin Calcium (Atorvastatin Calcium) 20 Mg Tablet, 20 MG PO HS, TAB 07/20/23 Apixaban (Eliquis) 5 Mg Tablet, 5 MG PO BID, TAB RESUME ELIQUIS ON 05/26/22 05/24/22 Allopurinol (Allopurinol) 300 Mg Tablet, 300 MG PO DAILY, TAB 07/07/18 Clopidogrel Bisulfate (Plavix) 75 Mg Tablet, 75 MG PO AM, TAB 08/28/14 Past Medical History Past Medical History: Diabetes-Type II, Heart Disease, Hypertension Medical History Other: HX OF GOUT Past Surgical History: Pacer/AICD Surgical History Other: CARDIAC STENTS Social History Social History: Negative ROS Dictation Constitutional: Negative for fever,chills, and weight loss Eyes: Positive for swelling of his eyes and face. ENT: Negative for injury,pain or swelling Cardiovascular: Negative for chest pain, palpitations, and edema Respiratory: Negative for shortness of breath, cough, and wheezing, Abdomen/GI: Negative for abdominal pain, nausea, vomiting, diarrhea, and constipation Back: Negative for injury and pain : Negative for injury, bleeding and discharge MS/Extremity: Negative for injury and deformity Skin: Negative for rash, and discoloration Neuro: Positive for syncope Psych: Negative for suicide ideation, homicidal ideation, and hallucinations Physical Exam Physical Exam Dictation General: awake, alert, NAD Head/Face: Normocephalic, atraumatic Eyes: PERRL, eye swelling ENT: oral cavity clear, TMs clear, no signs of infection Neck: Trachea midline, supple, no nuchal rigidity Cardiovascular: RRR, normal S1/S2, No MRGs, no JVD Respiratory: CTAB, no respiratory distress, No rales or wheezes Abdomen: Soft, non-tender, non-distended, normal bowel sounds, no guarding or rebound. Skin: Erythematous papules is a posterior scalp and neck MS/Extremity: Pulses equal, no cyanosis, neurovascular intact, FROM Neuro: COAx4, GCS 15, strength 5/5, CN 2-12 intact, normal cerebellar exam, normal gait, Psych: Normal behavior, mood, and affect normal Results Laboratory and Microbiology Lab and Micro Result Laboratory Tests Test 10/17/24 13:26 White Blood Count 10.3 K/uL (4.8-10.8) Red Blood Count 5.00 MIL/uL (4.50-6.20) Hemoglobin 14.4 g/dL (14.0-18.0) Hematocrit 44.1 % (42-54) Mean Corpuscular Volume 88.2 fL (79-99) Mean Corpuscular Hemoglobin 28.8 pg (27.0-33.0) Mean Corpuscular Hemoglobin Concent 32.7 g/dL (32.0-36.0) Red Cell Distribution Width 14.0 % (11.0-15.5) Platelet Count 169 K/uL (130-400) Mean Platelet Volume 11.6 fL (7.5-10.5) H Segmented Neutrophils % 80 % (40-70) H Band Neutrophils % 10 % (0-2) H Lymphocytes % (Manual) 7 % (22-44) L Monocytes % (Manual) 3 % (2-9) Nucleated Red Blood Cells 0.0 % (0.0-0.19) Differential Comment MANUAL DIFFERENTIAL White Cell Morphology Comment CONSISTENT W/DIFF Platelet Morphology Comment ADEQUATE Red Blood Cell Morphology ANISO 1+ Sodium Level 145 mmol/L (136-145) Potassium Level 4.4 mmol/L (3.5-5.1) Chloride Level 109 mmol/L (101-111) Carbon Dioxide Level 28 mmol/L (21-32) Blood Urea Nitrogen 21 mg/dL (7-18) H Creatinine 1.7 mg/dL (0.5-1.3) H Glomerular Filtration Rate Calc 44 mL/min (>90) Random Glucose 190 mg/dL (70-105) H Total Calcium 7.9 mg/dL (8.5-10.1) L Total Bilirubin 0.4 mg/dL (0.2-1.0) Aspartate Amino Transf (AST/SGOT) 57 U/L (10-37) H Alanine Aminotransferase (ALT/SGPT) 147 U/L (12-78) H Alkaline Phosphatase 112 U/L (50-136) Troponin I High Sensitivity 74 ng/L (4-75) Total Protein 5.9 g/dL (6.0-8.3) L Albumin 2.9 g/dL (3.5-5.0) L MDM Patient has case of allergic reaction following multiple bee stings with syncope likely secondary to transient hypotension or vasovagal response. Patient has had a mild systemic reaction without airway compromise or cardiopulmonary involvement. Given the transient hypotension /syncope and patient appears hemodynamically stable now. Patient was able to walk around the entire unit without any issues. Labs appear stable Patient will be discharged with his under her supervision for further evaluation and care. MDM: Differential diagnosis: Allergic reaction Rationale: Tests considered and ordered secondary to shared decision making include: Previous outside records reviewed: Old ER visits. Risk of complication and/or morbidity or mortality of patient management: None Medications-Per medication reconciliation Need for hospitalization: Patient does not meet criteria for hospitalization. Need for emergency major/minor surgery: No There are no social concerns with this patient. Prescription drug management Prescriptions will include symptomatic care Patient's prior external medical records from other ER visits were reviewed by me as indicated. Prior testing and results from previous visits were reviewed. Prior tests were taken into account with medical decision making and resource utilization, independent historian/historians were used to obtain complete medical history. I independently interpreted the test that were performed, results were reviewed by me and considered findings on radiology if ordered. Medical management and examination interpretation discussions were had by me with other qualified healthcare professionals as indicated for the patient's care. ED Course Orders Procedure Category Date Status Time 0.9%Nacl 1000ml (Ns PHA 10/17/24 In Process 1000ml) 12:30 Famotidine 20mg Vial PHA 10/17/24 Complete (Pepcid 20mg Vial) 12:30 Methylprednisolone PHA 10/17/24 Complete Succ 125mg (Solu-Medr 12:30 Cbc W Manual Diff LAB 10/17/24 Complete 12:14 Comprehensive LAB 10/17/24 Complete Metabolic Panel 12:14 Troponin I High LAB 10/17/24 Complete Sensitivity 12:14 Current Medications Medications (Trade) Dose Ordered Sig/Jennifer Route PRN Reason Start Time Stop Time Status Last Admin Dose Admin Famotidine (Pepcid 20mg Vial) 20 mg ONCE ONCE IV 10/17/24 12:30 10/17/24 12:31 DC 10/17/24 12:26 Methylprednisolone Sodium Succinate (Solu-medROL 125MG) 125 mg ONCE ONCE IVP 10/17/24 12:30 10/17/24 12:31 DC 10/17/24 12:25 Sodium Chloride 660 ml @ 220 mls/hr ONCE ONCE IV 10/17/24 12:30 10/17/24 15:29 10/17/24 12:26 Vital Signs Date Time Temp Pulse Resp B/P (MAP) Pulse Ox O2 Delivery O2 Flow Rate FiO2 10/17/24 14:23 95.7 60 20 133/62 98 Room Air* 0 10/17/24 13:21 96.3 96 20 132/79 98 Room Air* 0 10/17/24 12:33 58 15 118/58 97 Nasal Cannula* 1 24 10/17/24 12:09 66 15 93 Room Air* 0 10/17/24 11:55 99.0 68 16 104/50 91 Nasal Cannula* 2 10/17/24 11:51 99.0 67 16 104/50 95 Room Air 2.0 DX & DISP Disposition: Discharge Departure Impression: Primary Impression: Bee sting Condition: Stable Scripts Prednisone (Prednisone) 20 Mg Tablet 40 MG PO DAILY, #5 TAB Prov: UNIQUE ESTRELLA MD 10/17/24 Referrals: BEATRICE PERERA (PCP) UNIQUE ESTRELLA MD October 17, 2024 14:23
--- NOTE | 2024-10-17 14:34 | NUR ---
lorna ambulated around the ER with no issues, steady gait minimal edeama to umder eye, skin is cool to touch, patient states his headache is 2/10, no other complaints.
[2024-10-17 14:37] LABS: BAND NEUTROPHILS % (MANUAL) 10 % (0-2); LYMPHOCYTES % (MANUAL) 7 % (22-44); MAN.DIFF COMMENT-IMPRESSION MANUAL DIFFERENTIAL; MONOCYTES % (MANUAL) 3 % (2-9); PLATELET MORPHOLOGY COMMENT ADEQUATE; SEGMENTED NEUTROPHILS % 80 % (40-70); TOTAL CELLS COUNTED 100; WBC MORPHOLOGY CONSISTENT W/DIFF
[2024-10-17] MEDS ORDERED: PRED20TA3 PO (15:30)
[2024-10-17 15:38] VITALS: BP 138/88; PULSE 96; RESP 18; TEMP 96.3; O2SAT 97
--- NOTE | 2024-10-17 16:17 | EKG ---
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
== END 2024-10-17 15:58 | disposition home or self-care (01) ==
LOC: EDH 11:50
DX: T63.441A Toxic effect of venom of bees, accidental (unintentional), initial encounter (principal); E11.9 Type 2 diabetes mellitus without complications; I10 Essential (primary) hypertension; Z79.01 Long term (current) use of anticoagulants; Z79.52 Long term (current) use of systemic steroids; Z79.84 Long term (current) use of oral hypoglycemic drugs; Z79.899 Other long term (current) drug therapy; Z91.030 Bee allergy status; Z95.5 Presence of coronary angioplasty implant and graft; Z95.810 Presence of automatic (implantable) cardiac defibrillator; Y92.89 Other specified places as the place of occurrence of the external cause
CPT/HCPCS: 99284; 96374; 96361; 96375; 84484; 80053; 85025; 36415; 93005; J2919; J3490; J7030